=== PATIENT | male | born 1990 | race Caucasian/White ===

== ENCOUNTER → 2023-10-14 13:14 | Outpatient (CLI) | payer BC, SELFPAY ==
--- NOTE | ~2023-10-14 | CT_ITS ---
EXAMINATION: CT BRAIN W/O DATE: 10/14/2023 13:36 INDICATION: Dizziness and giddiness TECHNIQUE: Computed tomography (CT) of the head and sinuses was performed without intravenous contras t. The dose-length product was 749.46 mGy-cm. Automated exposure control and iterative reconstruction technique were employed. COMPARISON: No prior studies for comparison. FINDINGS: Normal brain parenchymal volume for age. Normal joyce-white differentiation. No acute intrac ranial hemorrhage, infarction, mass or mass effect. No ventriculomegaly or midline shift. Midline sagittal images demonstrate a normal corpus callosum, c raniovertebral junction and sella turcica. Basilar cisterns are patent. Paranasal sinuses and mastoids are pneumatized. There is mild leftward nasal septal deviation. Ostiom eatal units are patent. No mucoperiosteal reaction. Minimal mucosal thickening right maxillary sinus. No depressed skull fractures. IMPRESSION: 1. No acute intracranial abnormality. Reviewed, dictated and finalized at location A. E CHARMER
== END ==
PROVIDERS: PCP Emergency Medicine; Visit Provider Emergency Medicine
DX: R42 Dizziness and giddiness (principal)
CPT/HCPCS: 70450; 70486

== ENCOUNTER 2023-10-21 10:17 | Outpatient (CLI) | payer BC, SELFPAY ==
[2023-10-21 19:42] LABS: Basophils Percent Auto 0.5 % (0.2-1.2); Eosinophils Absolute Auto 0.1 K/mm3 (0-0.3); Eosinophils Percent Auto 1.6 % (0-4.4); Hematocrit 42.7 % (42.0-52.0); Hemoglobin 14.3 g/dL (14.0-18.0); Immature Granulocyte Absolute 0.01 K/mm3 (0.00-0.031); Immature Granulocyte Percent A 0.2 % (0-0.5); Lymphocytes Absolute Auto 2.15 K/mm3 (0.9-3.2); Lymphocytes Percent Auto 37.5 % (18.3-44.2); Mean Corpuscular HGB Conc 33.5 g/dl (32-36); Mean Corpuscular Volume 89.5 fl (80-100); Mean Platelet Volume 10.3 fl (7.4-10.4); Monocytes Absolute Auto 0.4 K/mm3 (0.1-0.6); Monocytes Percent Auto 7.1 % (2.6-8.5); Neutrophils Absolute Auto 3.1 K/mm3 (1.3-6.7); Neutrophils Percent Auto 53.1 % (45.5-73.1); Platelet Count Result 244 k/mm3 (150-375); Red Blood Count 4.77 M/mm3 (4.6-6.20); Red Cell Distribution Width 12.2 % (11.5-14.5); White Blood Count 5.7 K/mm3 (4.5-10.0)
[2023-10-21 19:48] LABS: Alanine Aminotransferase 21 U/L (6-50); Albumin Level 4.5 g/dL (3.5-5.1); Alkaline Phosphatase 58 U/L (38-126); Anion Gap 7 mmol/L (8-16); Aspartate Amino Transferase 43 U/L (17-59); Bilirubin,Total 1.3 mg/dL (0.2-1.3); Blood Urea Nitrogen 14 mg/dL (9-20); Calcium 9.3 mg/dL (8.4-10.2); Carbon Dioxide 30 mmol/L (22-30); Chloride 103 mmol/L (98-107); Estimated Glomerular Filt Rate > 60; Glucose 117 mg/dL (65-110); Potassium 3.9 mmol/L (3.4-5.0); Sodium 140 mmol/L (137-145)
== END 2023-10-21 10:18 | disposition home or self-care (01) ==
LOC: ANHGOSHLAB 10:19
PROVIDERS: PCP Emergency Medicine; Visit Provider Emergency Medicine
DX: R42 Dizziness and giddiness (principal)
CPT/HCPCS: 36415; 80053; 84443; 85025

== ENCOUNTER 2023-11-02 09:03 | Outpatient (RCR) | payer BC, SELFPAY ==
--- NOTE | 2023-11-02 09:58 | OPREHPOC ---
Outpatient Therapy Plan of Care This is a Multidisciplinary Plan of Care that may contain components documented by all disciplines (PT, OT, and ST.) PT Problem 1 PT Problem #1 Knowledge Deficit PT Goal 1 Goal 1* indep with self care of vestibular system/HEP PT Problem 2 PT Problem #2 Impaired Vestibular Syste PT Goal 1 Goal pt not have any vestibular s/s with: 1* sitting cervical flexion 5 reps 2* Anterior/posterior canal testing 3* Horizontal canal testing 4* further assessment of vestibular system as symptoms indicate
--- NOTE | 2023-11-02 09:58 | PTOPEVAL1 ---
Assessment and note entered by Roxana Ramos, PT Evaluation Information Assessment Status Evaluation Diagnosis BPPV/ vestibular rehab Onset Jun 2023 Subjective Information chronic issues with dizziness, started about 6 years ago with flying and ears popped; troubles since then; have improved since Jun--fell down stairs and missed work; symptoms: every day when wake up have sinus pressure; no dizziness or head spinning at this time; history: allergy and sinus issues, nasal congestion, take claritin PRN; issues with vision --have eye dr appt next week, feel when more issues with sinus, vision decreases; Reported Pain Level Pain Score 0: Self Report Assessment PT Clinical Summary Rojelio has the diagnosis of BPPV/ vestibular therapy. He has chronic issues with dizziness, with recent increase in Jun, falling down stairs and unable to go to work. Self assessment Dizziness Handicap Index score of 26/100. His medical history includes sinus and allergy issues, nasal and ear congestion, visual changes. He has eye dr appt next week and ENT in few weeks. With the evaluation, symptoms were elicited with cervical flexion, [place] [employer] [employer] testing to R slight s/s without nystagmus and more symptoms with Horizontal canal testing on L. Able to clear Horizontal canal BPPV with BBQ maneuver. Education completed to pt for self clearing of BPPV and general vestibular system education. Skilled PT is indicated for vestibular rehab and education to pt. He is to call if he has any questions, or if additional appointments are needed for further dizziness symptoms. Plan of Care Interventions Neuro Re-education,Patient Education, Therapeutic Activities,Therapeutic Exercise PT Services Indicated Yes Treatment Frequency and 1-2 x/wk for 4 weeks, depending upon vestibular Duration symptoms
--- NOTE | 2023-11-30 10:59 | PTOPDC ---
Assessment and note entered by Roxana Ramos, PT Discharge Information Assessment Status Discharge - Pt Not Presen Diagnosis BPPV/ vestibular rehab Onset Jun 2023 Assessment PT Clinical Summary Rojelio had the PT evaluation on 11-02-23 for vestibular therapy/ BPPV. He did not return for any further treatment. Therefore, he will be discharged at this time. The goals were not addressed. Plan of Care PT Services Indicated No
== END 2023-11-30 14:57 | disposition home or self-care (01) ==
LOC: ANHPT 09:03
PROVIDERS: PCP Emergency Medicine; Visit Provider Emergency Medicine
DX: H81.13 Benign paroxysmal vertigo, bilateral (principal)
CPT/HCPCS: 95992; 97161; 97530

== ENCOUNTER 2024-08-15 13:34 | Outpatient (CLI) | payer BC, SELFPAY ==
--- NOTE | ~2024-08-15 | MR_ITS ---
EXAMINATION: MRA brain wo con DATE: 08/15/2024 14:26 INDICATION: Dizziness. TECHNIQUE: Magnetic resonance angiography (MRA) of the brain was performed without intravenous contra st with T1-weighted SPGR by the 3D [id number] technique. Maximum intensity projection 3D-reconstr uctions were obtained. COMPARISON: Brain MRI 08/15/2024 FINDINGS: The vertebral arteries are codominant. There is no significant stenosis of basilar artery or the post erior cerebral arteries. Right posterior communicating artery is normal. A left posterior communicati ng artery is not identified. There is no significant stenosis of the intracranial internal carotid ar teries or anterior or middle cerebral arteries. Anterior communicating artery is normal. There is no aneurysm. IMPRESSION: 1. Normal MRA. Reviewed, dictated and finalized at location B. IMPRESSION: 1. Normal MRA.
--- NOTE | ~2024-08-15 | MR_ITS ---
EXAMINATION: MR brain/brain stem wo/w con DATE: 08/15/2024 14:27 INDICATION: Dizziness. TECHNIQUE: Magnetic resonance imaging (MRI) of the brain and brainstem was performed without and with 15 mL MultiHance intravenous contrast. COMPARISON: Head CT 10/14/2023 FINDINGS: There is no intracranial hemorrhage, acute infarction, or abnormal intracranial mass lesion . The ventricles are normal in size. The paranasal sinuses are clear. The orbits are normal. The mast oid air cells are normal. IMPRESSION: 1. Normal brain. Reviewed, dictated and finalized at location B. IMPRESSION: 1. Normal brain.
== END 2024-08-15 13:35 | disposition home or self-care (01) ==
LOC: MICIMG 13:35
DX: R42 Dizziness and giddiness (principal); H93.8X2 Other specified disorders of left ear; H93.A9 Pulsatile tinnitus, unspecified ear
CPT/HCPCS: 70544; 70553; A9577